=== PATIENT | female | born 1950 | race Caucasian/White ===

== ENCOUNTER 2019-12-23 10:01 | Emergency (ER) | payer MEDICARE, OTHER, SELFPAY ==
[2019-12-23 10:14] VITALS: BP 141/74; PULSE 91; RESP 20; TEMP 36.8; O2SAT 98
--- NOTE | 2019-12-23 10:14 | ED.GENADULT ---
HPI - General Adult General Chief complaint: Wound/Laceration Stated complaint: L/leg laceration Time Seen by Provider: 12/23/19 10:12 Source: patient and RN notes reviewed Mode of arrival: ambulatory Limitations: no limitations History of Present Illness HPI narrative: 69-year-old female presents with complaints of laceration to left lower leg caused by hitting leg on a stump this morning. Carolyn says at approximately 09:45 this morning she was outside working in yard when she ran into a stump causing a laceration to LT leg. Bleeding controlled. Denies focal weakness, altered sensation. Denies pain, numbness or tingling, or loss of mobility. No foreign body sensation. Tetanus NOT up-to-date, will update today. The patient reports she have not been diagnosed with COVID-19. The patient reports she is not waiting for the results of a COVID-19 lab test. The patient reports she do not have fever, chills, weakness, or fatigue. The patient reports she do not have a new or worsening cough or shortness of breath. Denies chest pain. The patient reports she do not have any rhinorrhea, congestion, sore throat, loss of taste, nausea, vomiting, abdominal pain, and diarrhea. Tolerating po intake well. Denies recent traveling. Denies concerns for COVID-19 or exposures been home with limited outdoor exposure except for essential household needs and return home. At this time, patient is not suspected of having COVID-19. Some parts of this dictation were generated by voice recognition software and may contain typographical and/or grammatical inaccuracies. Related Data Allergies Allergy/AdvReac Type Severity Reaction Status Date / Time Penicillins Allergy Intermediate Rash Verified 12/02/17 08:50 Review of Systems Review of Systems: Narrative: CONSTITUTIONAL: Denies fever, chills, sweats. EYES: Denies visual changes, redness, discharge. ENT: Denies rhinorrhea, congestion, sore throat, otalgia. CARDIOVASCULAR: Denies chest pain, palpitations, edema. RESPIRATORY: Denies dyspnea, wheezing, cough. GASTROINTESTINAL: Denies abdominal pain, nausea, vomiting, or diarrhea. SKIN: Denies rash or itching. Complains of laceration to left lower leg. MUSCULOSKELETAL: Denies acute back pain, joint pain, or myalgia. NEUROLOGIC: Denies numbness or focal weakness. PSYCHIATRIC: Denies anxiety or depression. All systems reviewed & are unremarkable except as noted in HPI and below. [facility] Past Medical History Medical History (Updated 12/23/19 @ 14:43 by ED Overton) No significant past medical history Surgical History Surgical History (Updated 12/23/19 @ 14:43 by ED Overton) History of exploratory laparotomy Family History Family History (Updated 12/23/19 @ 14:44 by ED Overton) Father Alzheimers disease Mother Heart disease Hypertension Social History Social History (Updated 12/23/19 @ 14:45 by ED Overton) Smoking status: Never smoker Tobacco type: cigarettes Second hand tobacco smoke exposure: No Alcohol intake: never Substance use: never Living arrangements: with family Occupation/Education: retired Gender identity (if verbalized by the patient): Female Sexual Orientation (if Verbalized by the Patient): Straight or Heterosexual Comments At time of signature, agree with nurse past medical, surgical, social, and family history. There is no relevant family history pertinent to the presenting complaint. Exam Narrative: Exam Narrative: GENERAL: This is a well-nourished, well-developed patient, in no apparent distress. Talks in full sentences and ambulates with left antalgic gait without dyspnea. HEAD: normocephalic, atraumatic. CARDIOVASCULAR: Regular rate and rhythm without murmurs, gallops, or rubs. RESPIRATORY: Clear to auscultation. Breath sounds equal bilaterally. No wheezes, rales, or rhonchi. GASTROINTESTINAL: Abdomen soft, non-tender,
[2019-12-23] MEDS: LIDOCAINE HCL 1% LOCAL INJ 20 ML VIAL 10 ML INFILTRATE (10:32)
[2019-12-23] MEDS: TETANUS,DIPHTHERIA,AC PERTUSSIS ADULT (0.5 ML) BOOSTRIX IM (10:32)
== END 2019-12-23 11:09 | disposition home or self-care (01) ==
PROVIDERS: Emergency Provider Nurse Practitioner Family
DX: S81.812A Laceration without foreign body, left lower leg, initial encounter (principal); W22.8XXA Striking against or struck by other objects, initial encounter; Z23 Encounter for immunization
CPT/HCPCS: 12004; 90471; 90715; 99213; G0463

== ENCOUNTER 2020-07-31 05:48 | Emergency (ER) | payer MEDICARE, SELFPAY ==
[2020-07-31] VITALS (17 sets, daily range): BP systolic 107–140; BP diastolic 68–93; PULSE 66–89; RESP 10–21; TEMP 36.6; O2SAT 94–100
--- NOTE | ~2020-07-31 | CT_ITS ---
EXAMINATION: CT abdomen pelvis w con EXAM DATE: 07/31/2020 07:21 INDICATION: Right upper quadrant pain, radiation to back . TECHNIQUE: Spiral CT of the abdomen and pelvis was performed following intravenous injection of 100 m L Omnipaque 350. Axial, coronal and sagittal images of the abdomen and pelvis were reviewed. The do se-length product (DLP) for this examination was 443.18 mGy-cm. The exposure was tailored according to patient size (auto mA exposure control), and iterative reconstruction (ASIR) was used as additiona l dose reduction technique. There is no prior study for comparison. FINDINGS: There is a 1.6 cm cystic mass in the body of the pancreas without wall thickening or enhanc ement. The differential diagnosis includes pseudocyst, intraductal papillary mucinous neoplasm (IPMN) , mucinous cystic neoplasm (MCN), and the less common serous cystadenoma and neuroendocrine tumor. Co rrelate for history of pancreatitis. The liver, spleen, adrenal glands and pancreas are otherwise unremarkable. The gallbladder is disten ded but otherwise unremarkable, no adjacent inflammation. There is no biliary duct dilation. Portal and splenic veins are patent. Kidneys enhance symmetrically. There is no hydronephrosis. The audra christopher is anteverted and morphologically normal. The bladder is unremarkable. There is no retroperito dania or pelvic lymphadenopathy. There is mild scattered arteriosclerotic disease. The appendix is not positively visualized. There is no pericecal inflammatory change to suggest appe ndicitis. The stomach and small bowel are unremarkable. There is moderate amount of colonic stool. No free intraperitoneal gas. The heart is normal in size. There are no pericardial or pleural e ffusions. There are bibasilar linear opacities, subsegmental atelectasis. There are no osteoblastic or osteolytic lesions identified. IMPRESSION: 1. Distended but otherwise unremarkable gallbladder. If clinically indicated, consider right upper q uadrant sonogram. 2. Incidental pancreatic 1.6 cm cystic mass; one-year follow-up CT abdomen with contrast recommended . Reviewed, dictated and finalized at location A. IMPRESSION: 1. Distended but otherwise unremarkable gallbladder. If clinically indicated, consider right upper quadrant sonogram. 2. Incidental pancreatic 1.6 cm cystic mass; one-year follow-up CT abdomen wit h contrast recommended.
--- NOTE | ~2020-07-31 | US_ITS ---
EXAMINATION: US right upper quadrant EXAM DATE: 07/31/2020 08:47 INDICATION: Right upper quadrant pain radiating to back. TECHNIQUE: Multiple grayscale and Doppler images of the abdomen right upper quadrant were obtained (b y a technologist who performed the scan) and subsequently reviewed. Correlation is made to CT earlier same day. FINDINGS: The pancreatic head and body are normal in appearance. The pancreatic tail is not visualized. The l iver has normal echogenicity and contour. There are no focal liver lesions identified. There is no evidence of intrahepatic biliary duct dilation. Portal venous flow was seen in the hepatopedal, nor mal direction and has normal Doppler waveform. No right-sided hydronephrosis. Common bile duct measures 2-3 mm, which is normal. Gallbladder is moderately distended and wall measu ring 3 mm, borderline thickened, but there is no cholelithiasis or pericholecystic fluid. Technologi st performing exam reports patient did not demonstrate sonographic Ramos's sign. Please note that t his sign is less reliable in patients who have received pain medication. IMPRESSION: Moderately distended gallbladder with borderline thickened wall measurement, nonspecific. No cholelithiasis, pericholecystic fluid or sonographic Ramos's sign was elicited. Reviewed, dictated and finalized at location A. IMPRESSION: Moderately distended gallbladder with borderline thickened wall behzad surement, nonspecific. No cholelithiasis, pericholecystic fluid or sonographic Ramos's sign was elicited.
--- NOTE | 2020-07-31 06:27 | ECG_ITS ---
Measurements Intervals [place] Rate: 70 P: 63 LA: 182 QRS: -2 QRSD: 95 T: 44 QT: 395 QTc: 429 Interpretive Statements SINUS RHYTHM CONSIDER INFERIOR INFARCT, AGE INDETERMINATE ABNORMAL ECG Electronically Signed On 07-31-2020 7:36:28 CDT by Aki Hinton D.O.
[2020-07-31] MEDS: ONDANSETRON INJ 4 MG/2 ML VIAL IV PUSH (06:35)
[2020-07-31] MEDS: SODIUM CHLORIDE 0.9% IV 1,000 ML 999 ML IV CONT (06:35)
[2020-07-31] MEDS: MORPHINE SULFATE (*CRX) 4 MG/ML INJ IV PUSH (06:37)
--- NOTE | 2020-07-31 06:38 | ED.GENADULT ---
HPI - General Adult General Chief complaint: Back Pain/Injury <Vadim Jones MD - Last Filed: 07/31/20 06:48> Stated complaint: right flank pain <Vadim Jones MD - Last Filed: 07/31/20 06:48> Time Seen by Provider: 07/31/20 06:09 <Vadim Jones MD - Last Filed: 07/31/20 06:48> History of Present Illness HPI narrative: Patient 70-year-old female who presents the emergency department with chief complaint of abdominal pain and flank pain. The patient reports this began on Saturday reports that it is more her right upper quadrant and right flank area patient states the pain is worse with movement and deep breaths patient states that she has had no fever no chills reports that she is concerned that this could be her gallbladder patient denies diarrhea reports that she had a prior exploratory laparotomy and has had a BRICK SETTER surgery in the past patient denies chest pain states that she feels a little short of breath but that is because of pain and it hurts whenever she takes a deep breath. Patient reports symptoms are not improved by anything <Vadim Jones MD - Last Filed: 07/31/20 06:48> Related Data Allergies/adverse reactions: Allergies Allergy/AdvReac Type Severity Reaction Status Date / Time Penicillins Allergy Intermediate Rash Verified 07/31/20 06:02 <Vadim Jones MD - Last Filed: 07/31/20 06:48> Review of Systems Review of Systems: Narrative: A 10 system review of systems was completed on the patient and is negative except for what is stated in the HPI. Nursing and ancillary documentation was reviewed. <Vadim Jones MD - Last Filed: 07/31/20 06:48> [facility] Past Medical History Medical History: Medical History No significant past medical history <Vadim Jones MD - Last Filed: 07/31/20 06:48> Surgical History Surgical History: Surgical History History of exploratory laparotomy <Vadim Jones MD - Last Filed: 07/31/20 06:48> Family History Family History: Family History Father Alzheimers disease Mother Heart disease Hypertension <Vadim Jones MD - Last Filed: 07/31/20 06:48> Social History Social History: Social History Smoking status: Never smoker Tobacco type: cigarettes Second hand tobacco smoke exposure: No Alcohol intake: never Substance use: never Gender identity (if verbalized by the patient): Female <Vadim Jones MD - Last Filed: 07/31/20 06:48> Exam Narrative: Exam Narrative: GENERAL: Well-appearing, well-nourished, and in no acute distress. HEAD: Normocephalic, atraumatic. EYES: PERRLA and EOMI. ENT: Nares clear, no rhinorrhea or epistaxis. Mucous membranes moist. NECK: Supple. CHEST: Clear to auscultation. No respiratory distress. HEART: Regular rate and rhythm. No murmur heard. Normal peripheral pulses. ABDOMEN: Soft, tender to palpation in the right upper quadrant, nondistended, normal active bowel sounds. EXTREMITIES: Normal range of motion. No edema. SKIN: Warm, dry, no rash. NEURO: No focal deficits. Alert and oriented x3. PSYCH: Normal mood and affect. <Vadim Jones MD - Last Filed: 07/31/20 06:48> Course Course Emergency Course: EKG shows sinus rhythm no ST elevation or ST depression <Vadim Jones MD - Last Filed: 07/31/20 06:48> Patient informed of results. Educated on low-fat diet and possible need for HIDA scan outpatient by PCP. Verbalized understanding. Will give small amount of pain and nausea medication in case she is continuing to have flares at home. <Moy Gonzalez MD - Last Filed:
[2020-07-31 06:47] LABS: Basophils Percent Auto 0.3 % (0.2-1.2); Eosinophils Percent Auto 0.3 % (0-4.4); Hematocrit 40.7 % (37.0-47.0); Hemoglobin 13.3 g/dL (12.0-15.0); Immature Granulocyte Absolute 0.02 K/mm3 (0.00-0.031); Immature Granulocyte Percent A 0.3 % (0-0.5); Lymphocytes Absolute Auto 0.91 K/mm3 (0.9-3.2); Lymphocytes Percent Auto 14.4 % (18.3-44.2); Mean Corpuscular HGB Conc 32.7 g/dl (32-36); Mean Corpuscular Hemoglobin 32.1 pg (26-34); Mean Corpuscular Volume 98.3 fl (80-100); Mean Platelet Volume 10.5 fl (7.4-10.4); Monocytes Absolute Auto 0.6 K/mm3 (0.1-0.6); Monocytes Percent Auto 8.7 % (2.6-8.5); Neutrophils Absolute Auto 4.8 K/mm3 (1.3-6.7); Platelet Count Result 168 k/mm3 (150-375); Red Blood Count 4.14 M/mm3 (4.2-5.4); Red Cell Distribution Width 12.2 % (11.5-14.5); White Blood Count 6.3 K/mm3 (4.5-10.0)
[2020-07-31 07:01] LABS: Lactic Acid Reflex 1.1 mmol/L (0.7-2.1)
[2020-07-31 07:02] LABS: Alanine Aminotransferase 13 U/L (4-35); Albumin Level 4.4 g/dL (3.5-5.1); Alkaline Phosphatase 82 U/L (38-126); Anion Gap 8 mmol/L (8-16); Aspartate Amino Transferase 22 U/L (14-36); Bilirubin,Total 0.7 mg/dL (0.2-1.3); Blood Urea Nitrogen 11 mg/dL (7-17); Calcium 9.7 mg/dL (8.4-10.2); Carbon Dioxide 28 mmol/L (22-30); Chloride 104 mmol/L (98-107); Estimated CRCL calculation 56 ml/min; Estimated Glomerular Filt Rate > 60; Glucose 101 mg/dL (65-105); Lipase 50 U/L (23-300); Potassium 3.9 mmol/L (3.4-5.0); Sodium 140 mmol/L (137-145)
[2020-07-31 07:14] LABS: Troponin I < 0.012 ng/mL (0.000-0.034)
== END 2020-07-31 09:46 | disposition home or self-care (01) ==
PROVIDERS: Emergency Medicine; Emergency Provider Emergency Medicine; PCP Nurse Practitioner Family
DX: R10.11 Right upper quadrant pain (principal); K86.9 Disease of pancreas, unspecified; R94.31 Abnormal electrocardiogram [ECG] [EKG]; R93.2 Abnormal findings on diagnostic imaging of liver and biliary tract
CPT/HCPCS: 36415; 74177; 76705; 80053; 83605; 83690; 84484; 85025; 93005; 96361; 96374; 96375; 99284; J2270; J2405; J7030; Q9967

== ENCOUNTER → 2021-08-15 10:33 | Outpatient (CLI) | payer MEDICARE, OTHER, SELFPAY ==
--- NOTE | ~2021-08-15 | US_ITS ---
US soft tissue head and neck 08/15/2021 11:01 Indication: Palpable facial mass Procedure: High-resolution Limited ultrasound of the left face Comparison: No prior studies for comparison. Findings: In the area of palpable concern of the left face near the parotid region there is a complex heterogeneous mass measuring 1.8 x 1.9 x 1.1 cm with heterogeneous internal vascularity. There is po sterior acoustic enhancement. Impression: 1: Complex 1.9 cm left facial mass with internal vascularity and some angular margins. This is not co mpatible with cyst or normal lymph node. Cannot exclude malignancy. Consider correlation with percuta neous biopsy or contrast-enhanced CT face/neck. Reviewed, dictated and finalized at location A. Impression: 1: Complex 1.9 cm left facial mass with internal vascularity and some angular m argins. This is not compatible with cyst or normal lymph node. Cannot exclude m alignancy. Consider correlation with percutaneous biopsy or contrast-enhanced C T face/neck.
== END ==
PROVIDERS: PCP Nurse Practitioner Family; Visit Provider Nurse Practitioner Family
DX: R22.0 Localized swelling, mass and lump, head (principal)
CPT/HCPCS: 76536

== ENCOUNTER 2022-11-09 21:41 | Emergency (ER) | payer MEDICARE, SELFPAY ==
[2022-11-09 22:02] VITALS: BP 135/73; PULSE 79; RESP 18; TEMP 36.4; O2SAT 98
--- NOTE | 2022-11-10 01:16 | PC.NURSE ---
This RN took patient report from SHARYN Lin. This RN assumed care of patient.
--- NOTE | 2022-11-10 02:15 | ED.WOUNDLAC ---
HPI - Wound/Laceration General Chief Complaint: Wound/Laceration Stated Complaint: laceration Time Seen by Provider: 11/10/22 00:45 Source: patient Mode of arrival: ambulatory Limitations: no limitations History of Present Illness HPI narrative: Patient is a 72-year-old female who presents to the ED with report of a laceration to her right forearm. Patient reports she was playing with her grandchild víctor when she tripped over the rug and fell backwards hitting her arm against a table. She sustained a V-shaped flap laceration to her right forearm. Denied any other injuries, head injury, LOC. Denies numbness or tingling. She is not on any blood thinners. Tetanus up-to-date. Related Data Allergies Allergy/AdvReac Type Severity Reaction Status Date / Time Penicillins Allergy Intermediate Rash Verified 11/10/22 01:18 Review of Systems Review of Systems: CONSTITUTIONAL: Denies fever, chills, or sweats. SKIN: See HPI. MUSCULOSKELETAL: Denies back pain, joint pain, or myalgia. NEUROLOGIC: Denies HI, LOC, tingling, numbness, or weakness. All systems reviewed & are unremarkable except as noted in HPI and below PMFSH Past Medical History Medical History No significant past medical history Surgical History Surgical History History of exploratory laparotomy Family History Family History Father Alzheimers disease Mother Heart disease Hypertension Social History Social History Smoking status: Never smoker Tobacco type: cigarettes Second hand tobacco smoke exposure: No Alcohol intake: never Substance use: never Living arrangements: with family Occupation/Education: retired Gender identity (if verbalized by the patient): Female Sexual Orientation (if Verbalized by the Patient): Straight or Heterosexual Exam Narrative: GENERAL: Well appearing, well-nourished, non-toxic, in no acute distress. HEAD: Normocephalic, atraumatic. NECK: Supple. No adenopathy, no masses. RESPIRATORY: Airway patent, respirations nonlabored. CARDIOVASCULAR: Regular rate and rhythm without murmurs, rubs, or gallops. Radial pulses 2+ and equal bilaterally. MUSCULOSKELETAL: Moves all extremities. Strength/ROM intact without gross deformities. SKIN: Warm, dry, normal color. No rashes. Large at least 10 cm in total flap laceration to the right ventral forearm. Minimal active bleeding. Sensation intact. Distal portion of flap very thin skin. Ecchymosis surrounding laceration. NEURO: A&O X3. Speech clear. Cranial nerves II-XII grossly intact. Steady gait. No ataxic movements. PSYCHIATRIC: Appropriate mood and affect. Normal interaction. Course Vital Signs Vital signs: Vital Signs Temperature 97.5 F L 11/09/22 22:02 Pulse Rate 79 11/09/22 22:02 Respiratory Rate 18 11/09/22 22:02 Blood Pressure 135/73 11/09/22 22:02 Pulse Oximetry 98 11/09/22 22:02 Oxygen Delivery Room Air 11/09/22 22:02 Temperature 97.5 F L 11/09/22 22:02 Pulse Rate 79 11/09/22 22:02 Respiratory Rate 18 11/09/22 22:02 Blood Pressure 135/73 11/09/22 22:02 Pulse Oximetry 98 11/09/22 22:02 Oxygen Delivery Room Air 11/09/22 22:02 Procedures Laceration Laceration 1: Date: 11/10/22 Time: 02:00 Site: upper extremity Side (If applicable): right Size (cm): 10 Description: linear and flap Depth: simple, single layer Local Anesthetic: lidocaine 1% Amount of anesthesia used (mL): 5 Pre-repair: wound explored and irrigated ====== Skin Level ====== Skin layer closed with: nylon and steri strips Size (cm): 4-0 Number of sutures: 9 (tip of flap repaired with steri
== END 2022-11-10 02:49 | disposition home or self-care (01) ==
PROVIDERS: Emergency Provider Physician Assistant; PCP Nurse Practitioner Family
DX: S51.811A Laceration without foreign body of right forearm, initial encounter (principal); W01.190A Fall on same level from slipping, tripping and stumbling with subsequent striking against furniture, initial encounter
CPT/HCPCS: 12004; 99282

== ENCOUNTER 2023-10-17 13:57 | Outpatient (CLI) | payer MEDICARE, SELFPAY ==
--- NOTE | ~2023-10-17 | XR_ITS ---
EXAMINATION: XR heel LT min 2V DATE: 10/17/2023 14:19 INDICATION: Left heel pain. TECHNIQUE: 2 views of left calcaneus were obtained. COMPARISON: None. FINDINGS: Alignment is normal. No fracture. There is mild osteoarthritis of talonavicular joint. Ther e are enthesophytes at the posterior and plantar aspects of calcaneal tuberosity. IMPRESSION: 1. No fracture. Reviewed, dictated and finalized at location A. IMPRESSION: 1. No fracture.
== END 2023-10-17 13:58 | disposition home or self-care (01) ==
DX: M79.672 Pain in left foot (principal)
CPT/HCPCS: 73650

== ENCOUNTER 2023-10-20 19:19 | Emergency (ER) | payer MEDICARE, SELFPAY ==
[2023-10-20] VITALS (7 sets, daily range): BP systolic 113–126; BP diastolic 64–91; PULSE 66–80; RESP 12–18; TEMP 36.2–36.6; O2SAT 97–100
--- NOTE | ~2023-10-20 | XR_ITS ---
EXAMINATION: XR tibia fibula RT 2V DATE: 10/20/2023 21:33 INDICATION: Fall with right lower leg laceration and pain TECHNIQUE: AP and lateral views of the right tibia and fibula were obtained. COMPARISON: None. FINDINGS: Bone alignment is normal. No fracture. Joint spaces are normal. Small Achilles calcaneal spur. Small focus of subcutaneous gas and overlying bandaging material at the lateral mid right calf consistent w ith given history of laceration. No radiopaque foreign bodies. There are few phleboliths in the soft tissues at the anterior lower powell. IMPRESSION: 1. No acute osseous abnormality or radiopaque foreign body. Reviewed, dictated and finalized at location A.
[2023-10-20 20:28] LABS: Basophils Percent Auto 0.4 % (0.2-1.2); Eosinophils Absolute Auto 0.1 K/mm3 (0-0.3); Eosinophils Percent Auto 1.4 % (0-4.4); Hematocrit 37.8 % (37.0-47.0); Hemoglobin 12.7 g/dL (12.0-15.0); Immature Granulocyte Absolute 0.01 K/mm3 (0.00-0.031); Immature Granulocyte Percent A 0.2 % (0-0.5); Lymphocytes Percent Auto 26.4 % (18.3-44.2); Mean Corpuscular HGB Conc 33.6 g/dl (32-36); Mean Corpuscular Hemoglobin 32.2 pg (26-34); Mean Corpuscular Volume 95.7 fl (80-100); Mean Platelet Volume 9.6 fl (7.4-10.4); Monocytes Absolute Auto 0.4 K/mm3 (0.1-0.6); Monocytes Percent Auto 8.3 % (2.6-8.5); Neutrophils Absolute Auto 3.1 K/mm3 (1.3-6.7); Neutrophils Percent Auto 63.3 % (45.5-73.1); Platelet Count Result 183 k/mm3 (150-375); Red Blood Count 3.95 M/mm3 (4.2-5.4); Red Cell Distribution Width 12.4 % (11.5-14.5); White Blood Count 4.9 K/mm3 (4.5-10.0)
[2023-10-20 20:43] LABS: Alanine Aminotransferase 20 U/L (6-35); Albumin Level 4.4 g/dL (3.5-5.1); Alkaline Phosphatase 75 U/L (38-126); Anion Gap 9 mmol/L (4-12); Aspartate Amino Transferase 29 U/L (14-36); Bilirubin,Total 0.3 mg/dL (0.2-1.3); Blood Urea Nitrogen 23 mg/dL (7-17); Calcium 9.6 mg/dL (8.4-10.2); Carbon Dioxide 28 mmol/L (22-30); Chloride 94 mmol/L (98-107); Estimated CRCL calculation 40 ml/min; Estimated Glomerular Filt Rate 54; Glucose 96 mg/dL (65-110); Potassium 4.3 mmol/L (3.4-5.0); Sodium 131 mmol/L (137-145)
--- NOTE | 2023-10-20 22:34 | ED.FALL ---
HPI - Fall General Chief Complaint: Fall Stated Complaint: fall Time Seen by Provider: 10/20/23 20:22 Source: patient Mode of arrival: ambulatory Limitations: no limitations History of Present Illness HPI Narrative: Patient is a 73-year-old female who presents to the ED with report of a fall. Patient reports she was picking tomatoes from her garden when she lost her balance and fell. She fell backwards and slipped over an approximately 4 ft tall retaining wall. She did not hit her head or lose consciousness. Denied any dizziness or lightheadedness prior to the fall. She sustained an injury to her right lower leg with a large skin tear. Also sustained a small skin tear to her left forearm. Tetanus up-to-date. Patient denies any neck or back pain, chest pain, abdominal pain, numbness. Patient is not on any anticoagulation. Related Data Allergies Allergy/AdvReac Type Severity Reaction Status Date / Time Penicillins Allergy Intermediate Rash Verified 10/20/23 19:58 Review of Systems Review of Systems: All systems reviewed & are unremarkable except as noted in HPI. All systems reviewed & are unremarkable except as noted in HPI and below PMFSH Past Medical History Medical History No significant past medical history Surgical History Surgical History History of exploratory laparotomy Family History Family History Father Alzheimers disease Mother Heart disease Hypertension Social History Social History Smoking status: Never smoker Tobacco type: cigarettes Second hand tobacco smoke exposure: No Alcohol intake: never Substance use: never Living arrangements: with family Occupation/Education: retired Gender identity (if verbalized by the patient): Female Sexual Orientation (if Verbalized by the Patient): Straight or Heterosexual Exam Narrative: GENERAL: Well appearing, well-nourished, non-toxic, in no acute distress. HEAD: Normocephalic, atraumatic. RESPIRATORY: Airway patent, respirations nonlabored. Clear to auscultation bilaterally, no rales, rhonchi, wheezing. CARDIOVASCULAR: Regular rate and rhythm without murmurs, rubs, or gallops. Radial pulses strong. MUSCULOSKELETAL: Moves all extremities. No gross deformities. 0.5cm linear superficial skin tear to L lateral distal forearm. no active bleeding. No tenderness over L wrist. Large approx 14cm flap laceration/skin tear to mid anterolateral R powell. Minimal active bleeding/oozing. Tenderness to palpation underlying skin tear. SKIN: Warm, dry, normal color. NEURO: A&O X3. Speech clear. Cranial nerves II-XII grossly intact. Steady gait. No ataxic movements. PSYCHIATRIC: Appropriate mood and affect. Normal interaction. Course Vital Signs Vital signs: Vital Signs Temperature 97.9 F 10/20/23 19:52 Pulse Rate 80 10/20/23 19:52 Respiratory Rate 18 10/20/23 19:52 Blood Pressure 119/68 10/20/23 19:52 Pulse Oximetry 97 10/20/23 19:52 Oxygen Delivery Room Air 10/20/23 19:52 Temperature 97.4 F L 10/20/23 22:50 Pulse Rate 74 10/20/23 22:50 Respiratory Rate 16 10/20/23 22:50 Blood Pressure 113/64 10/20/23 22:50 Pulse Oximetry 99 10/20/23 22:50 Oxygen Delivery Room Air 10/20/23 19:52 Procedures Laceration Laceration 1: Date: 10/20/23 Time: 22:25 Site: lower extremity Side (If applicable): right Size (cm): 14 Description: flap and irregular Depth: simple, single layer Local Anesthetic: lidocaine 1% Amount of anesthesia used (mL): 8 Pre-repair: wound explored, irrigated and irrigated extensively ====== Skin Level ====== Skin layer closed with: nylon
[2023-10-20] MEDS: IBUPROFEN 600 MG TABLET PO (22:50)
[2023-10-20] MEDS: ACETAMINOPHEN 500 MG TABLET 1000 MG PO (22:50)
== END 2023-10-20 22:52 | disposition home or self-care (01) ==
PROVIDERS: Emergency Medicine; Emergency Provider Physician Assistant
DX: S81.811A Laceration without foreign body, right lower leg, initial encounter (principal); W18.30XA Fall on same level, unspecified, initial encounter
CPT/HCPCS: 12005; 36415; 73590; 80053; 85025; 99283; A9270

== ENCOUNTER 2024-10-27 14:54 | Outpatient (CLI) | payer MEDICARE, SELFPAY ==
--- NOTE | ~2024-10-27 | XR_ITS ---
XR lumbar spine 2-3V Indication: INJURY OF LOW BACK Comparison: None Findings: Grade 1 anterolisthesis L2 on L3, grade 1 retrolisthesis L3 on L4, no acute fracture. Moderate loss of disc height at L2-3 and L3-4. Soft tissues unremarkable Impression: No acute abnormality. Reviewed, dictated and finalized at location A. Impression: No acute abnormality.
--- OUTSIDE RECORDS SUMMARY | 2024-10-27 16:21 | XMS_ITS | Encounter Summary ---
Author Organization [facility] Health Address [address] [place] [address] Care Team Providers Care Chiseler Head Name Role Phone Carmel Mahan PIG LEAD MELTER HELPER-DOG WARDEN Primary Care Provider Encounter Details Date Type Department Care Team (Late st Contact Info) Description 12/25/2017 Lab Requisition [facility] Care DermPath Lab [address] [place] [address] Lalo Campbell MD [address] [place] [address] Social History Tobacco Use Types Packs/Day Years Used Date Smoking Tobacco: Never Assessed Comments Unknown Sex and Gender Information Value Date Recorded Sex Assigned at Not on file Legal Sex Female 11:21 AM HIGH WORKER Gender Identity Not on file Sexual Orientation Not on file documented as of this encounter Plan of Treatment Not on file documented as of this encounter Procedures Procedure Name Priority Date/Time Associated Diagnosis Comments DERMATOPATHOLOGY Routine 12/24/2017 12:0 0 AM HIGH WORKER documented in this encounter Results * DERMATOPATHOLOGY (12/24/2017 12:00 AM HIGH WORKER) Case Report Dermatopathology Report Case: [id number] Authorizing Provider: Lalo Campbell MD Collected: 12/24/2017 12:00 AM Pathologist: Yaneli Liao MD Received: 12/25/2017 11:27 AM Specimens: A) - Skin, left mid back B) - Skin, left lat sup calf 8 11:24 AM HIGH WORKER DERMATOPATHOLOGY LABORATORY Final Diagnosis Specimen A. SKIN, left mid back: SQUAMOUS CELL CARCINOMA, WELL DIFFERENTIATED (C44.529) Specimen B. SKIN, left lat sup calf: SQUAMOUS CELL CARCINOMA IN SITU, VERRUCOUS-HYPERTROP HIC TYPE (D04.72) 11:24 AM [facility] DERMATOPATHOLOGY [facility]ORATORY at [address] HIGH WORKER Clinical History A-B: R/O SCC, KA vs ISK. 11:24 AM [facility] DERMATOPATHOLOGY [facility]ORATORY Gross Description Specimen A: Received is one formalin filled container labeled with the patient's name and designated left mid back. The specimen consists of a shave biopsy measuring [id number], bisected Jar 0+. Specimen B: Received is one formalin filled container labeled with the patient's name and designated left lat sup calf. The specimen consists of a shave biopsy measuring [id number]. Jar 0. 11:24 AM [facility] DERMATOPATHOLOGY [facility]ORATORY Microscopic Description Specimen A. SKIN, left mid back: Arising in the epidermis and extending into the dermis there are irregularly shaped aggregates of keratinocytes showing evidence of premature cornification. Specimen B. SKIN, left lat sup calf: The epidermis is acanthotic and shows full thickness disorderly maturation of keratinocytes, mitoses at different levels, and dyskeratotic cells. There is overlying parakeratosis and hyperkeratosis. 11:24 AM [facility] DERMATOPATHOLOGY [facility]ORATORY Disclaimer An external and internal positive and negative controls are appropriate for the histochemical, immunohistochemical and immunofluorescence stain(s) in this case (if any), except where stated explicitly. The performance characteristics of the stain(s) cited in this report were developed and its performance characteristic determined by the Dermatopathology Laboratory at [facility]. These tests need not be, and therefore are not, approved by the [place] Food and Drug Administration. The tests are used for clinical purposes. Billing Codes Specimen Charges Stain Charges 62714 73526 1 1 8 11:24 AM [facility] DERMATOPATHOLOGY [facility]ORAT[facility] Embedded Images 11:24 AM [facility] DERMATOPATHOLOGY [facility]ORAT[facility] Pathology/Cytology TISSUE SPECIMEN FROM SKIN / Unknown 12/24/2017 12/25/2017 11:27 AM HIGH WORKER Miscellaneous samples (specimen) TISSUE SPECIMEN FROM SKIN / Unknown 12/24/2017 12/25/2017 11:27 AM HIGH WORKER Lalo Campbell MD LAB - PATHOLOGY/CYTOLOGY ORD ERABLES Final Result DERMATOPATHOLOGY LABORATORY [facility] - Department of Dermatology [address] [place] [address], 5[address] Floor Lab [address] [phone] documented in this encounter Visit Diagnoses Not on filedocumented in this encounter Care Teams Chiseler Head Relationship Specialty Start Date End Date Carmel Mahan, PIG LEAD MELTER HELPER-DOG WARDEN [address] [place] [address] PCP - General 02/06/18 documented as of this encounter
--- OUTSIDE RECORDS SUMMARY | 2024-10-27 16:21 | XMS_ITS | Clinical Summary ---
Author Organization [facility] Address [address] [place] [address] Care Team Providers Care Foster Care Therapist Name Role Phone Carmel Mahan REGINA-CONFERENCE PRODUCER Primary Care Provider Source Comments [facility],non-owned Affiliates and Associated Physician Practices is amultiple site organization consisting of ambulatory clinics and hospital sitesin [place], [place], [place] and [place]. This disclosure is being madepursuant to the Care Everywhere program and may not contain all information available regarding this patient. Last updated 17.[facility] Allergies Active Allergy Reactions Criticality Noted Date Comments Penicillins Rash Medium 02/06/2018 Medications * Be aware that medications may not be up to date on this document. Alwaysverify current medications with the patient. [place]-3 Fatty Acids (FISH OIL) 1000 MG capsule Take 2,000 mg by mouth once daily Active Cholecalciferol (VITAMIN D3) 5000 UNITS TBDP Take 1 tablet by mouth 2 times daily Active vitamin C (ASCORBIC ACID) 1000 MG tablet Take 1,000 mg by mouth once daily Active Resveratrol 250 MG Take 1 capsule by mouth once daily Active Selenium 200 MCG Take 1 tablet by mouth 2 times daily Active cyanocobalamin (VITAMIN B-12) 1000 MCG tablet Take 1,000 mcg by mouth once daily Active Cumming 3 MG Take 1 capsule by mouth 2 times daily Active BIOTIN 5000 PO Take 1 tablet by mouth once daily Active Milk Thistle 300 MG Take 1 tablet by mouth 2 times daily Active Methylsulfonylm ethane (MSM) 1000 MG Take 1 tablet by mouth once daily Active Spirulina 500 MG Take 3 tablets by mouth 2 times daily Active Turmeric (CURCUMIN 95) 500 MG Take 1 tablet by mouth 2 times daily Active alpha lipoic acid 200 MG capsule Take 600 mg by mouth once daily Active Zinc 30 MG Take 1 tablet by mouth 2 times daily Active ALOE VERA PO Take 200 mg by mouth 2 times daily Active Active Problems No known active problems Social History Tobacco Use Types Packs/Day Years Used Date Smoking Tobacco: Never Smokeless Tobacco: Never Alcohol Use Standard Drinks/Week Comments No 0 (1 standard drink = 0.6 oz pur e alcohol) Comments Unknown Sex and Gender Information Value Date Recorded Sex Assigned at Not on file 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 Gender Identity Not on file Sexual Orientation Not on file Last Filed Vital Signs Vital Sign Reading Time Taken Comments Blood Pressure 116/85 04/10/2018 2:59 PM CITY PLANNER Pulse 79 04/10/2018 2:59 PM CITY PLANNER Temperature - - Respiratory Rate - - Oxygen Saturation 96% 04/10/2018 2:59 PM CITY PLANNER Inhaled Oxygen Concentration - - Weight 72.6 kg (160 lb) 04/10/2018 2:00 PM CITY PLANNER Height 165.1 cm (5' 5) 04/10/2018 2:00 PM CITY PLANNER Body Mass Index 26.63 04/10/2018 2:00 PM CITY PLANNER Plan of Treatment Health Maintenance Due Date Last Done Comments BONE DENSITY TESTING 1950 MEDICARE AWV 12 MONTHS 1950 HEPATITIS C SCREENING 01/02/1966 DTAP/TDAP/TD VACCINES (1 - Tdap) 01/06/1967 PNEUMOCOCCAL VACCINE 50+ (1 of 1 - PCV) 01/06/1998 ZOSTER VACCINE (1 of 2) 01/06/1998 SCREENING FOR DIABETES 02/06/2018 Respiratory Syncytial Virus (RSV) Vaccine Pt: or over 60 yrs (1 - 1-dose 75+ series) 01/06/2023 DEPRESSION SCREENING 02/19/2024 COVID-19 VACCINE (1 - 2023-2 5 season) 2024 INFLUENZA VACCINE (#1) 2024 HEPATITIS B VACCINE Aged Out No longe r eligible based on patient's age to complete this topic HIB VACCINE Aged Out No longer eligi ble based on patient's age to complete this topic HPV VACCINE Aged Out No longer eligi ble based on patient's age to complete this topic MENINGOCOCCAL (Group B) VACC INE SHARED DECISION-MAKING Aged Out No longer eligibl e based on patient's age to complete this topic MENINGOCOCCAL GROUPS A/C/Y/W VACCINE Aged Out No longer eligible b ased on patient's age to complete this topic Insurance MEDICARE Member Subscriber Plan / Payer ( fective 2012-Present) Name:Carolyn Francis Member ID:[id number] Relation to Subscriber:Self Name:CAROLYN FRANCIS A Subscriber ID:[id number] Payer ID:Not on file Group ID:Not on file Type:Medicare Address: [address] Member Subscriber Plan / Payer ( fective 2012-Present) Name:Carolyn Francis Member ID:[id number] Relation to Subscriber:Self Name:CAROLYN FRANCIS Subscriber ID:[id number] Payer ID:Not on file Group ID:Not on file Type:Medicare Address: [place] [id number] MEDICARE MEDICARE Member Subscriber Plan / Payer ( fective 2012-Present) Name:Carolyn Francis Member ID:[id number] Relation to Subscriber:Self Name:CAROLYN FRANCIS A Subscriber ID:[id number] Payer ID:Not on file Group ID:Not on file Type:Medicare Address: [address] MEDICARE Member Subscriber Plan / Payer ( fective 2012-Present) Name:Carolyn Francis Member ID:[id number] Relation to Subscriber:Self Name:CAROLYN FRANCIS Subscriber ID:[id number] Payer ID:Not on file Group ID:Not on file Type:Medicare Address: [place] [id number] MEDICARE Member Subscriber Plan / Payer ( fective 2012-Present) Name:Carolyn Francis Member ID:[id number] Relation to Subscriber:Self Name:CAROLYN FRANCIS Subscriber ID:[id number] Payer ID:Not on file Group ID:Not on file Type:Medicare Address: [place] [id number] MEDICARE MEDICARE Care Teams Foster Care Therapist Relationship Specialty Start Date End Date Carmel Mahan APRN-CONFERENCE PRODUCER [address] [place] [address] PCP - General 02/06/18
== END 2024-10-27 14:55 | disposition home or self-care (01) ==
DX: S39.92XA Unspecified injury of lower back, initial encounter (principal); X58.XXXA Exposure to other specified factors, initial encounter
CPT/HCPCS: 72100